=== PATIENT | female | born 1995 | race Caucasian/White ===

== ENCOUNTER 2017-07-14 21:14 | Emergency (ER) | payer BC ==
[~2017-07-14] VITALS: Ht 167.6 cm; Wt 68.2 kg
[~2017-07-14 21:14] MED LIST: BIRTH CONTROL; FLEXERIL 1010 MG/TAB PO; LORTAB 5/500 501 TAB PO
[2017-07-14 21:19] VITALS: BP 138/73; TEMP 98.5
[2017-07-14] MEDS ORDERED: SINGULAIR 110 MG/TAB PO (21:21)
[2017-07-14] MEDS ORDERED: SPRINTEC 35 MCG1 TAB PO (21:21)
[2017-07-14] MEDS ORDERED: CELEXA 20MG20 MG/TAB PO (21:21)
[2017-07-14] MEDS ORDERED: ALLEGRA 180MG180 MG PO (21:22)
[2017-07-14 21:49] LABS: COLLECTION METHOD CLEAN CATCH
[2017-07-14 21:58] LABS: MUCOUS Present /lpf; PH 5 (5-8); SQUAMOUS EPITHELIAL 0-2 /hpf; URINE APPEARANCE Cloudy; URINE BACTERIA Rare /hpf; URINE BILIRUBIN Negative (NEGATIVE); URINE BLOOD 3+ (NEGATIVE); URINE COLOR Yellow; URINE GLUCOSE Negative (NEGATIVE); URINE KETONE Negative (NEGATIVE); URINE LEUKOCYTE ESTERASE 3+ (NEGATIVE); URINE NITRATE Negative (NEGATIVE); URINE PROTEIN(semi-quant) 2+ (NEGATIVE); URINE RBC >50 /hpf; URINE UROBILINOGEN >=4.0 mg/dL (NEGATIVE)
[2017-07-14] MEDS ORDERED: CEFTIN 250250 MG/TAB PO (22:07)
[2017-07-14 22:15] VITALS: PULSE 78
== END 2017-07-14 22:15 | disposition home or self-care (01) ==
LOC: COL.ER 21:14
PROVIDERS: Nurse Practitioner
DX: N39.0 Urinary tract infection, site not specified (principal)

== ENCOUNTER → 2018-02-03 | Outpatient (CLI) | payer BC ==
[~2018-02-03] MED LIST changes: +ALLEGRA 180MG180 MG PO; +CEFTIN 250250 MG/TAB PO; +CELEXA 20MG20 MG/TAB PO; +SINGULAIR 110 MG/TAB PO; +SPRINTEC 35 MCG1 TAB PO
== END ==
LOC: COL.RAD 14:15
DX: R10.11 Right upper quadrant pain (principal)

== ENCOUNTER → 2018-02-17 | Outpatient (CLI) | payer BC | LOC: COL.RAD 09:52 | DX: K82.8 Other specified diseases of gallbladder (principal); R10.9 Unspecified abdominal pain | CPT/HCPCS: A9537 ==

== ENCOUNTER → 2018-03-10 | Day surgery (SDC) | payer BC ==
[~2018-03-10] VITALS: Ht 167.6 cm; Wt 65.8 kg
[2018-03-10] VITALS (8 sets, daily range): BP systolic 111–127; BP diastolic 59–74; PULSE 69–90; TEMP 97.8–98.3
[~2018-03-10] MED LIST changes: +COLACE 100100 MG/CAP PO; +MOTRIN 600600 MG/TAB PO; +MULTIPLE VITAMI1 CAP PO; +NORCO 325 MG-51 TAB PO; +VENTOLIN0.09 MG IH
== END ==
LOC: SDCO 05:26
DX: K81.1 Chronic cholecystitis (principal); E78.00 Pure hypercholesterolemia, unspecified; J45.909 Unspecified asthma, uncomplicated; N32.81 Overactive bladder; F41.9 Anxiety disorder, unspecified; F32.9 Major depressive disorder, single episode, unspecified; Z79.899 Other long term (current) drug therapy
CPT/HCPCS: J1885; J2270; J2405; J2704; J3010; J7120; Q9967

== ENCOUNTER 2021-05-03 17:49 | Emergency (ER) | payer BC ==
[~2021-05-03] VITALS: Ht 167.6 cm; Wt 68.2 kg
[2021-05-03 18:12] LABS: COLLECTION METHOD CLEAN CATCH
[2021-05-03 18:19] LABS: MUCOUS Present (NOT PRESENT); SQUAMOUS EPITHELIAL 0-2 /hpf (0-10); URINE BACTERIA Rare /hpf (NONE SEEN); URINE RBC 0-2 /hpf (0-2)
[2021-05-03 18:21] LABS: PH 6 (5-8); URINE APPEARANCE Clear (CLEAR/HAZY); URINE BILIRUBIN Negative (NEGATIVE); URINE BLOOD Negative (NEGATIVE); URINE GLUCOSE Negative (NEGATIVE); URINE KETONE Negative (NEGATIVE); URINE LEUKOCYTE ESTERASE Negative (NEGATIVE); URINE NITRATE Positive (NEGATIVE); URINE PROTEIN(semi-quant) 3+ (NEGATIVE); URINE UROBILINOGEN Negative (NEGATIVE)
[2021-05-03 18:23] LABS: URINE COLOR Yellow (YELLOW)
[2021-05-03 20:53] VITALS: TEMP 100.6
[2021-05-03] MEDS ORDERED: OMNICEF 300MG300 MG PO (21:01)
[2021-05-03] MEDS ORDERED: ZOFRAN 4MG T4 MG/TAB PO (21:01)
[2021-05-03 21:06] VITALS: BP 122/69; PULSE 84
== END 2021-05-03 21:11 | disposition home or self-care (01) ==
LOC: COL.ER 17:49
PROVIDERS: Nurse Practitioner Primary Care
DX: N39.0 Urinary tract infection, site not specified (principal)
CPT/HCPCS: J0696; J2270; J7030